=== PATIENT | male | born 1985 | race Caucasian/White ===

== ENCOUNTER 2021-01-25 15:05 | Emergency (ER) | payer SELFPAY ==
[~2021-01-25] VITALS: Ht 185.4 cm; Wt 84.0 kg
[2021-01-25] MEDS ORDERED: LORA-249 MT ×2 (16:57→16:58)
[2021-01-25 17:22] VITALS: BP 135/88
== END 2021-01-25 17:24 | disposition home or self-care (01) ==
LOC: ER 15:05
DX: F41.1 Generalized anxiety disorder (principal)
CPT/HCPCS: 82962; 93005; 99283